=== PATIENT | female | born 1965 | race American Indian/Alaskan Native ===

== ENCOUNTER 2018-04-28 13:44 | Emergency (ER) | payer SELFPAY ==
--- NOTE | 2018-04-28 14:06 | Emergency Department Report ---
Blank Doc - Documentation Documentation: C/O right pain that has recently been aggravated by working which in [place]. Followed by Dr. Moreno at [facility]. Has an appointed on May 05 with a foot doctor. No recent trauma. This initial assessment diagnostic orders/clinical plan/treatment (s) is/Are subject change based on patient's health status, clinical progression and re- assessment by fellow clinical providers in the ED. Further treatment and work-up at subsequent clinical providers discretion. Patient/guardians urged not to elope from s their condition may be serious if not clinically assessed and managed. Initial order include:
[2018-04-28] MEDS ORDERED: ULTRAM PO ONE (16:57)
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
[2018-04-28 18:36] VITALS: BP 158/92
== END 2018-04-28 18:36 | disposition home or self-care (01) ==
LOC: ED 13:44
DX: M79.671 Pain in right foot (principal); F17.200 Nicotine dependence, unspecified, uncomplicated; J44.9 Chronic obstructive pulmonary disease, unspecified; Z88.0 Allergy status to penicillin; Z88.4 Allergy status to anesthetic agent; Z88.6 Allergy status to analgesic agent
CPT/HCPCS: 99282

== ENCOUNTER 2018-05-06 00:42 | Emergency (ER) | payer OTHER ==
[2018-05-06] MEDS ORDERED: ZOFRAN IV ONE (01:02)
[2018-05-06] MEDS ORDERED: SUBLIMAZE IV ONE (01:02)
--- NOTE | 2018-05-06 01:07 | Emergency Department Report ---
ED Abdominal Pain HPI - General Chief Complaint: Chest Pain Stated Complaint: CHEST PAIN Time Seen by Provider: 05/06/18 01:00 Source: patient, EMS Mode of arrival: Stretcher Limitations: No Limitations - History of Present Illness Initial Comments: Patient is 53 years old female with no significant past medical history. Patient presented to the ER complaining of left upper quadrant abdominal pain started approximately 2 hours ago. Patient describes her pain as sharp, 10 out of 10 with no radiation. Patient denied any chest pain or shortness of breaths. She also denied any nausea, vomiting or diarrhea. MD Complaint: abdominal pain -: Sudden Location: LUQ Radiation: none Severity scale (0 -10): 7 Quality: sharp - Related Data Previous Rx's Medication Instructions Recorded Last Taken Type traMADol [Ultram 50 MG tab] 50 mg PO QHS #20 tablet 04/28/18 Unknown Rx Allergies Allergy/AdvReac Type Severity Reaction Status Date / Time acetaminophen [From Vicodin] Allergy Itching Verified 04/28/18 13:46 codeine Allergy Unknown Verified 04/28/18 14:07 hydrocodone [From Vicodin] Allergy Itching Verified 04/28/18 13:46 Penicillins Allergy Hives Verified 04/28/18 13:46 -cillins Allergy Unknown Uncoded 05/06/18 01:03 ED Review of Systems ROS: Stated complaint: CHEST PAIN Other details as noted in HPI Comment: All other systems reviewed and negative Constitutional: denies: chills, fever Respiratory: denies: cough, orthopnea, shortness of breath, SOB with exertion, SOB at rest, wheezing Cardiovascular: denies: chest pain, palpitations Gastrointestinal: abdominal pain. denies: nausea, vomiting, diarrhea, constipation, hematemesis, melena, hematochezia Musculoskeletal: denies: back pain Neurological: denies: headache, weakness, numbness, paresthesias ED Past Medical Hx - Past Medical History Previous Medical History?: Yes Hx Asthma: Yes Hx COPD: Yes Additional medical history: heart murmur, - Surgical History Past Surgical History?: Yes Additional Surgical History: murmur- heart surgery as - Social History Smoking Status: Current Every Day Smoker Substance Use Type: None - Medications Home Medications: Home Medications Medication Instructions Recorded Confirmed Last Taken Type traMADol [Ultram 50 MG tab] 50 mg PO QHS #20 tablet 04/28/18 Unknown Rx ED Physical Exam - General Limitations: No Limitations General appearance: alert, in distress (due to pain) - Head Head exam: Present: atraumatic, normocephalic, normal inspection - Eye Eye exam: Present: normal appearance, PERRL - ENT ENT exam: Present: normal exam, normal orophraynx, mucous membranes moist - Neck Neck exam: Present: normal inspection, full ROM. Absent: tenderness, meningismus, lymphadenopathy, thyromegaly - Respiratory Respiratory exam: Present: normal lung sounds bilaterally, chest wall tenderness. Absent: respiratory distress, wheezes, rales, rhonchi, accessory muscle use, decreased breath sounds, prolonged expiratory - Cardiovascular Cardiovascular Exam: Present: regular rate, normal rhythm, normal heart sounds - GI/Abdominal GI/Abdominal exam: Present: soft, tenderness (LUQ), normal bowel sounds. Absent: distended, guarding, rebound, rigid, organomegaly, mass, bruit, pulsatile mass, hernia - Extremities Exam Extremities exam: Present: normal inspection, full ROM, normal capillary refill - Back Exam Back exam: Present: normal inspection, full ROM. Absent: CVA tenderness (R), CVA tenderness (L), muscle spasm, paraspinal tenderness, vertebral tenderness - Neurological Exam Neurological exam: Present: alert, oriented X3, CN II-XII intact - Psychiatric Psychiatric exam: Present: normal mood - Skin Skin exam: Present: warm, intact, normal color ED Course Vital Signs 05/06/18 05/06/18 05/06/18 00:59 02:00 03:10 Temperature 98.2 F Pulse Rate 92 H 91 H 94 H Respiratory 26 H 16 26 H Rate Blood Pressure 144/72 140/72 132/58 Blood Pressure 144/72 [Right] O2 Sat by Pulse 97 Oximetry 05/06/18 05/06/18 04:00 05:00 Temperature Pulse Rate Respiratory 14 15 Rate Blood Pressure 123/59 123/59 Blood Pressure [Right] O2 Sat by Pulse Oximetry ED Medical Decision Making - Lab Data Result diagrams: 05/06/18 01:07 05/06/18 01:07 - Radiology Data Radiology results: report reviewed Referring Physician: MARLEE BELLO Patient Name: LIA DE LA CRUZ Date of : 1965 Sex: Female Report Date: 2018-05-06 Report Status: Finalized Findings [facility] [address] [place] [address] Cat Scan Report Signed Patient: LIA DE LA CRUZ MR#: [id number] : 1965 Acct:[id number] Age/Sex: 53 / F ADM Date: 05/06/18 Loc: ED Attending Dr: Ordering Physician: MARLEE BELLO Date of Service: 05/06/18 Procedure(s): CT abdomen pelvis w con Accession Number(s): [id number] cc: MARLEE BELLO PROCEDURE: CT ABDOMEN PELVIS W CON TECHNIQUE: Computerized axial tomography of the abdomen and pelvis was performed after the IV injection of iodinated nonionic contrast. CT DOSE LENGTH PRODUCT: mGycm HISTORY: abdominal pain COMPARISONS: None . FINDINGS: Visualized lower thorax: No significant abnormality. Liver: Normal size and attenuation. Spleen: Normal size and attenuation. Gallbladder and biliary system: There is cholelithiasis. There is no cholecystitis or biliary ductal dilatation.. Pancreas: Normal. Adrenals: Normal. Kidneys: Normal. GI tract: There is no bowel obstruction, colitis or enteritis. The appendix is normal. . Lymph nodes and mesentery: Normal. Vasculature: There is calcified plaque in the abdominal aorta. There is no aneurysm. Mesenteric branches are patent.. Bladder: Normal. Reproductive organs: Normal. Peritoneum: There is no ascites or free air, abscess or adenopathy.. Musculoskeletal structures: There is incidental bilateral spondylolysis at L5- S1.. IMPRESSION: There is cholelithiasis. There is no cholecystitis or biliary ductal dilatation.. There is no bowel obstruction, colitis or enteritis. The appendix is normal. . There is no ascites or free air, abscess or adenopathy.. . This document is electronically signed by Delfino Hewitt MD., May 06 2018 04:02:03 AM ET Transcribed By: CO Dictated By: DELFINO HEWITT MD Electronically Authenticated By: DELFINO HEWITT MD Signed Date/Time: 05/06/18 0405 DD/ 9 TD/TT: 05/06/18313 - Medical Decision Making Patient is 53 years old female with no significant past medical history. Patient presented to the ER complaining of left upper quadrant abdominal pain started approximately 2 hours ago. Patient describes her pain as sharp, 10 out of 10 with no radiation. Patient denied any chest pain or shortness of breaths. She also denied any nausea, vomiting or diarrhea. Patient EKG is unremarkable. CT abdomen and pelvis is negative for acute finding. Labs reviewed and is unremarkable except for a slightly elevated d- dimer but there is no clinical evidence of pulmonary embolism. Patient now is alert and oriented 3 in no acute distress. Patient is asking for a work excuse. I advised patient to follow up with her primary care physician in the next 2-3 days and to return to the ER if her symptoms have not improved. Critical care attestation.: If time is entered above; I have spent that time in minutes in the direct care of this critically ill patient, excluding procedure time. ED Disposition Clinical Impression: Abdominal pain Disposition: DC-01 TO HOME OR SELFCARE Is pt being admited?: No Condition: Stable Instructions: Abdominal Pain (ED) Referrals: JOSE HUYNH MD [Primary Care Provider] - 3-5 Days Forms: Work/School Release Form(ED)
[2018-05-06] MEDS ORDERED: SUBLIMAZE ONE (01:10)
[2018-05-06 01:22] LABS: Basophils # (Auto) 0.1 K/mm3 (0.0-0.1); Basophils % (Auto) 0.9 % (0.0-1.8); Eosinophils # (Auto) 0.1 K/mm3 (0.0-0.4); Eosinophils % (Auto) 1.8 % (0.0-4.3); Lymphocytes # (Auto) 2.5 K/mm3 (1.2-5.4); Lymphocytes % (Auto) 32.2 % (13.4-35.0); Mean Corpuscular HGB Conc 36 % (30-34); Mean Corpuscular Volume 104 fl (79-97); Monocytes # (Auto) 0.5 K/mm3 (0.0-0.8); Monocytes % (Auto) 6.8 % (0.0-7.3); Platelet Count 221 K/mm3 (140-440); Red Blood Count 4.76 M/mm3 (3.65-5.03); Red Cell Distribution Width 13.6 % (13.2-15.2)
[2018-05-06 01:24] LABS: Hematocrit 49.3 % (30.3-42.9); Hemoglobin 17.5 gm/dl (10.1-14.3)
[2018-05-06 01:46] LABS: Alanine Aminotransferase 11 units/L (7-56); BUN/Creatinine Ratio 10; Blood Urea Nitrogen 6 mg/dL (7-17); Hemolysis Index 10
[2018-05-06 01:57] LABS: Bilirubin,Direct < 0.2 mg/dL (0-0.2)
[2018-05-06 03:33] LABS: Bilirubin,Urine NEG (Negative); Blood,Urine NEG (Negative); Color,Urine Colorless (Yellow); Protein,Urine <15 mg/dL mg/dL (Negative); Urobilinogen,Urine < 2.0 mg/dL (<2.0)
[2018-05-06 03:35] LABS: WBC,Urine < 1.0 /HPF (0.0-6.0)
--- NOTE | 2018-05-06 04:05 | Cat Scan Report ---
PROCEDURE: CT ABDOMEN PELVIS W CON TECHNIQUE: Computerized axial tomography of the abdomen and pelvis was performed after the IV inject ion of iodinated nonionic contrast. CT DOSE LENGTH PRODUCT: mGycm HISTORY: abdominal pain COMPARISONS: None . FINDINGS: Visualized lower thorax: No significant abnormality. Liver: Normal size and attenuation. Spleen: Normal size and attenuation. Gallbladder and biliary system: There is cholelithiasis. There is no cholecystitis or biliary ductal dilatation.. Pancreas: Normal. Adrenals: Normal. Kidneys: Normal. GI tract: There is no bowel obstruction, colitis or enteritis. The appendix is normal. . Lymph nodes and mesentery: Normal. Vasculature: There is calcified plaque in the abdominal aorta. There is no aneurysm. Mesenteric branc hes are patent.. Bladder: Normal. Reproductive organs: Normal. Peritoneum: There is no ascites or free air, abscess or adenopathy.. Musculoskeletal structures: There is incidental bilateral spondylolysis at L5-S1.. IMPRESSION: There is cholelithiasis. There is no cholecystitis or biliary ductal dilatation.. There is no bowel obstruction, colitis or enteritis. The appendix is normal. . There is no ascites or free air, abscess or adenopathy.. . This document is electronically signed by Delfino Hackett MD., May 06 2018 04:02:03 AM ET
[2018-05-06 06:34] VITALS: BP 120/68
== END 2018-05-06 06:58 | disposition home or self-care (01) ==
LOC: ED 00:42
DX: R10.11 Right upper quadrant pain (principal); J44.9 Chronic obstructive pulmonary disease, unspecified; F17.200 Nicotine dependence, unspecified, uncomplicated; Z88.0 Allergy status to penicillin; Z88.6 Allergy status to analgesic agent
CPT/HCPCS: 36415; 74177; 80048; 80076; 81001; 83690; 84484; 85025; 85379; 93005; 93010; 96374; 96375; 99285; G0480; J2405; J3010; Q9967; 80320